=== PATIENT | male | born 1995 | race Caucasian/White ===

== ENCOUNTER → 2021-06-18 03:16 | Outpatient (CLI) | payer BC, SELFPAY ==
[2021-06-18 19:14] LABS: SARS-CoV-2 RNA PCR Negative
== END ==
PROVIDERS: PCP Family Medicine; Visit Provider Internal Medicine Critical Care Medicine
DX: Z20.822 Contact with and (suspected) exposure to COVID-19 (principal)
CPT/HCPCS: C9803; U0003; U0005

== ENCOUNTER 2021-06-21 08:06 | Outpatient (CLI) | payer BC, SELFPAY ==
--- NOTE | 2021-07-04 13:38 | WPDSLEEPSTUD ---
Sleep Study Date of Study: 06/21/21 <Heather Jackson DO - Last Filed: 07/04/21 15:07> Ordering Provider: Roberto Pascal MD <Heather Jackson - Last Filed: 07/04/21 15:07> Interpreting Physician: Heather Jackson DO <Heather Jackson DO - Last Filed: 07/04/21 15:07> Sleep Study Type: Split Polysomnogram <Heather Jackson DO - Last Filed: 07/04/21 15:07> Height: 1.96 m <Heather Jackson DO - Last Filed: 07/04/21 15:07> Weight: 165.561 kg <Heather Jackson DO - Last Filed: 07/04/21 15:07> Body Mass Index: 43.2 <Heather Jackson DO - Last Filed: 07/04/21 15:07> Neck Circumference (inches): 19.5 <Heather Jackson DO - Last Filed: 07/04/21 15:07> Russell: 12 <Heather Jackson DO - Last Filed: 07/04/21 15:07> Reason for Sleep Study Patient has had apneic episodes during sleep since [facility]. <Heather Jackson DO - Last Filed: 07/04/21 15:07> Sleep History The patient is a 25-year-old male that states he stops breathing in his sleep since high school. He states that he needs a minimum of 12 hours of sleep to feel rested. Both of his parents have sleep apnea. He denies awakening from sleep short of breath. He denies waking at night with heartburn, belching or cough. He constantly snores loud enough that others complain. He rarely has trouble sleeping when he has a cold. He denies waking up gasping for air throughout the night. He frequently has breathing problems at night observed by others. He denies heart palpitations throughout the night. He frequently falls asleep during the day and occasionally while driving. The patient denies sleep paralysis, cataplexy and hypnagogic / hypnopompic hallucinations. He rarely has trouble at work due to sleepiness. He denies having nightmares. He never feels sad or depressed. He rarely has anxiety. He often notices parts of his body jerk and caking throughout the night. He rarely experiences crawling and aching feelings in his legs. He denies leg pain throughout the night. He denies grinding his teeth during sleep waking up with morning jaw pain. He denies being bothered by pain during the day and being awakened by pain throughout the night. He often wakes up feeling stiff in the morning. The patient goes to bed between midnight and 2:00 a.m. on in the week days and weekends. It takes him less than minutes to fall asleep. He does not typically wake up throughout the night. He does wake during the night, it is to use the restroom. He can fall back asleep within 5 minutes. He wakes up at 5:30 a.m. to 6:30 a.m. on the weekdays and at 10:00 a.m. to noon on the weekends. He will typically stay in bed for 10 minutes after waking up in the morning. He typically gets 4-6 hours of sleep per day. He currently lives with 1 friend. He does not drink any caffeinated beverages within 2 hours of going to bed. He does not engage in physical exercise before bedtime. He does watch television before falling asleep. He does take naps in the afternoon or evening but they are not refreshing. He consumes 300-600 mg of caffeine per day. He denies tobacco, alcohol and recreational drug use. <Heather Jackson DO - Last Filed: 07/04/21 15:07> [facility] Past Medical History Medical History: Medical History BMI 45.0-49.9, adult <Heather Jackson DO - Last Filed: 07/04/21 15:07> Social History Social History: Social History Smoking status: Never smoker Second hand tobacco smoke exposure: No Alcohol intake: current <Heather Jackson DO - Last Filed: 07/04/21 15:07> Sleep Procedure This test was performed using the [employer] multiple channel system including EOG, EEG, submental EMG, EKG, nasal and oral airflow using thermistors and nasal pressure sensors,
[2021-07-04 13:48] VITALS: BMI 43.2
== END 2021-06-22 06:45 | disposition home or self-care (01) ==
LOC: ANHCSM 08:07
PROVIDERS: PCP Family Medicine; Visit Provider Family Medicine
DX: G47.00 Insomnia, unspecified (principal); G47.33 Obstructive sleep apnea (adult) (pediatric)
CPT/HCPCS: 95811